=== PATIENT | male | born 1960 | race Caucasian/White ===

== ENCOUNTER 2024-03-21 22:11 | Emergency (ER) | payer SELFPAY ==
[2024-03-21 22:23] VITALS: BP 170/90; O2SAT 99
--- NOTE | 2024-03-21 22:42 | ED Physician Documentation ---
PD HPI HEAD INJURY - Stated complaint Stated Complaint: FALL/HIT HEAD - Chief complaint Chief Complaint: Trauma Hd/Nk - History obtained from History obtained from: Patient - Additional information Additional information: Patient is a 64-year-old male without significant past medical history presenting for evaluation of head injury and scalp laceration that occurred just prior to arrival. Patient states that he was eating dinner had a kitchen counter when he turned and lost his balance and fell backwards hitting a corner which may have had some sheet-metal on it. He does admit to drinking a martini tonight. His neighbor is a doctor and he called her to evaluate him and she recommended he come to the emergency department for evaluation. He is unsure of his last tetanus. He does not take any blood thinners. He denies LOC. Review of Systems Cardiac: denies: Chest pain / pressure GI: denies: Abdominal Pain Skin: reports: Laceration (s) Neurologic: reports: Head injury. denies: Syncope, Headache PD PAST MEDICAL HISTORY - Past Medical History Past Medical History: Yes Cardiovascular: None Respiratory: None Neuro: None Endocrine/Autoimmune: None GI: None : None HEENT: None Psych: None Musculoskeletal: None Derm: None - Past Surgical History Past Surgical History: Yes - Allergies Allergies/Adverse Reactions: Allergies Allergy/AdvReac Type Severity Reaction Status Date / Time No Known Drug Allergies Allergy Verified 03/21/24 22:14 - Social History Does the pt smoke?: No Smoking Status: Never smoker Does the pt drink ETOH?: No Does the pt have substance abuse?: No - Immunizations Immunizations are current?: Yes PD ED PE NORMAL - General General: Alert and oriented X 3, No acute distress, Well developed/nourished - HEENT HEENT: PERRL, Moist mucous membranes, Pharynx benign, Other (Posterior scalp laceration) - Neck Neck: Supple, no meningeal sign, No bony TTP - Cardiac Cardiac: RRR, Strong equal pulses - Respiratory Respiratory: No respiratory distress, Clear bilaterally - Abdomen Abdomen: Soft, Non tender, Non distended - Derm Derm: Warm and dry - Extremities Extremities: No deformity - Neuro Neuro: Alert and oriented X 3, 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, No motor deficit, No sensory deficit, Normal speech, Other (Normal gait) Eye Opening: Spontaneous Motor: Obeys Commands Verbal: Oriented GCS Score: 15 Results - Vitals Vitals: Vital Signs - 24 hr 03/21/24 22:14 Temperature 36.8 C Heart Rate 60 Respiratory 16 Rate Blood Pressure 170/90 H O2 Saturation 99 Oxygen O2 Source Room air Procedures - Laceration (location) Posterior Scalp Length in cm: 8 Wound type: Linear, Clean Anesthesia: Lidocaine 1% with epi Wound preparation: Betadine, Hibiclens Skin layer closure: Hamilton (11) Other: Patient tolerated well, No complications, Neurovascular intact, Tetanus booster given PD Medical Decision Making - ED course ED course: Patient with head injury and scalp laceration. Normal neuroexam. Patient is alert and oriented with no LOC and no post Traumatic amnesia. Per MIPS criteria CT head would not be indicated. Patient also does not want CT scan and states he feels fine and just would like his wound taken care of. Wound was cleaned and irrigated and closed with alina which she tolerated well. Unable to find last tetanus so tested this booster was given. Patient advised on wound care instructions and understands need to return for staple removal as well as concerning symptoms to return for. Departure - Departure Disposition: 01 Home, Self Care Clinical Impression: Head injury, Scalp laceration Condition: Stable Instructions: ED Head Injury Closed, ED Laceration Scalp Stitch Or Stap Comments: 11 alina were placed into a laceration on your scalp to close the wound. These should be kept in place for at least a week. Please return to the emergency department Or walk-in clinic March 29 to have them removed. You were given a tetanus booster today as there was not one on record for you in the last 10 years. Return to the ER with any worsening symptoms such as severe headache, vomiting, bleeding or any other concerns. Forms: PCP List Discharge Date/Time: 03/21/24 22:55
[2024-03-21] MEDS: TETANUS/DIPHTHERIA/PERTUSSIS 0.5 ML SYRINGE IM ONE (22:48)
== END 2024-03-21 22:55 | disposition home or self-care (01) ==
LOC: ED 22:11
DX: S09.90XA Unspecified injury of head, initial encounter (principal); S01.01XA Laceration without foreign body of scalp, initial encounter; W18.30XA Fall on same level, unspecified, initial encounter; Z23 Encounter for immunization
CPT/HCPCS: 12004; 90471; 99283